=== PATIENT | female | born 1975 | race Caucasian/White ===

== ENCOUNTER 2021-07-05 09:07 | Day surgery (SDC) | payer OTHER ==
--- NOTE | 2021-07-05 08:57 | HP ---
DATE OF SURGERY: 07/05/2021 HISTORY OF PRESENT ILLNESS: The patient is a 46-year-old with off and on pain right upper quadrant epigastrium associated with some nausea, rare vomiting. One of the attacks lasted four hours. Denies any jaundice. Denies any prior abdominal surgery. Ultrasound showed cholelithiasis. PAST MEDICAL HISTORY: Gastroesophageal reflux disease. Anxiety. Depression. PAST SURGICAL HISTORY: Shoulder. Lumpectomy. MEDICATIONS: Omeprazole, Ozempic, Wegovy. ALLERGIES: SULFA. FAMILY HISTORY: Negative in regards to this problem. SOCIAL HISTORY: Denies smoking. Social alcohol use denies abuse. REVIEW OF SYSTEMS: Fourteen systems reviewed. No chest pain or palpitations. Other systems negative or noncontributory as above and per preadmission questionnaire. PHYSICAL EXAMINATION: GENERAL: No acute distress. HEENT: Sclerae nonicteric. NECK: No JVD. CHEST: Equal excursion, nonlabored breathing. CVS: Regular rate and rhythm. ABDOMEN: Soft. No peritoneal signs. EXTREMITIES: No significant edema. NEURO: Alert, oriented, moving extremities symmetrically. PSYCH: Appropriate mood and affect. IMPRESSION: Chronic cholecystitis/cholelithiasis. Risks and benefits explained in detail including but not limited to bleeding or infection, risk of trocar injury or hernia, risk of bowel, bladder or blood vessel injury, risk of bile leak, bile duct injury, retained stone or sludge possibly requiring further procedure either open or ERCP, general risk of anesthesia, deep venous thrombosis, pulmonary embolism, pneumonia, perioperative risk of aches, pains, bloating, constipation and/or loose stools possibly even chronic in nature, possibility that this procedure may not improve her symptoms and she may need further work up and/or testing, endoscopy, other studies or procedures. She understands and agrees to the planned procedure, will proceed with laparoscopic cholecystectomy with possible open.
[~2021-07-05 09:07] MED LIST: Lactated Ringers 1,000 ML IV ONE; Lactated Ringers 1,000 ML IV SCH; Sensorcaine 0.25% 10 ML ONE
[2021-07-05] MEDS ORDERED: Lactated Ringers 1,000 ML IV ONE (09:41)
[2021-07-05] MEDS ORDERED: MEFOXIN 2 GM PREMIX** 2 GM/50 ML ML IV SCH (10:00)
[2021-07-05] MEDS ORDERED: MEFOXIN 2 GM PREMIX** 2 GM/50 ML ML IV ONE (10:16)
[2021-07-05] MEDS ORDERED: Zemuron 100 MG/10 ML ONE (10:51)
[2021-07-05] MEDS ORDERED: Decadron 4 MG INJ ONE (10:51)
[2021-07-05] MEDS ORDERED: SUBLIMAZE 100 MCG/2 ML ONE ×2 (10:51→11:26)
[2021-07-05] MEDS ORDERED: Versed 2 MG/2 ML Injection ONE (10:51)
[2021-07-05] MEDS ORDERED: Xylocaine-Mpf 2% 5 Ml Vial ONE (10:51)
[2021-07-05] MEDS ORDERED: Zofran 4 MG/2 ML VIAL ONE (10:51)
[2021-07-05] MEDS ORDERED: DIPRIVAN 200 MG/20 ML IV ONE (10:51)
[2021-07-05] MEDS ORDERED: Quelicin Fliptop 200 MG/10 ML ONE (10:51)
[2021-07-05] MEDS ORDERED: OFIRMEV 100 ML IV ONE (10:52)
[2021-07-05] MEDS ORDERED: Pre-Attached Lta Kit TP ONE (10:52)
[2021-07-05] MEDS ORDERED: TRANDATE 20 MG/4 ML SYRINGE IV ONE (11:19)
[2021-07-05] MEDS ORDERED: APRESOLINE 20 MG/ML INJ ONE (11:31)
[2021-07-05] MEDS ORDERED: BRIDION 200MG/2ML IV ONE (11:51)
[2021-07-05] MEDS ORDERED: NORCO 5/325 MG ONE (12:59)
[2021-07-05] MEDS ORDERED: NORCO 5/325 MG PO PRN (13:00)
[2021-07-05] MEDS: MORPHINE SULFATE 2 MG INJ IV PRN ×2 (13:52→14:57)
[2021-07-05] MEDS ORDERED: MORPHINE SULFATE 4 MG INJ IV PRN (13:56)
[2021-07-05 14:31] VITALS: O2SAT 97
[2021-07-05] MEDS ORDERED: MORPHINE SULFATE 2 MG INJ ONE (14:52)
[2021-07-05 15:33] VITALS: BP 118/84; PULSE 78
--- NOTE | 2021-07-06 11:34 | OP ---
SURGERY DATE/TIME: 07/05/2021 1050 PREOPERATIVE DIAGNOSIS: Acute exacerbation of chronic cholecystitis, cholelithiasis. POSTOPERATIVE DIAGNOSIS: Acute exacerbation of chronic cholecystitis, cholelithiasis. PROCEDURE: Laparoscopic cholecystectomy. SURGEON: Dr. Hudson Cervantes. ANESTHESIA: General. ESTIMATED BLOOD LOSS: Minimal. INDICATIONS: As noted above. Risks and benefits explained in detail but not limited to and consent obtained. DESCRIPTION OF PROCEDURE AND FINDINGS: The patient was taken to the operating room. General anesthesia induced. Abdomen prepped and draped in the usual sterile fashion. After official time out and no disagreement with planned procedure, as it looked like she had a supraumbilical piercing in the past so a transverse incision made infraumbilical. Fascia grasped and pulled upward. Veress needle inserted and tested with saline. Pneumoperitoneum accomplished insufflating opening pressure of 0 to 15. An 11 mm bladeless port and camera inserted without difficulty followed by two - 5 mm right upper quadrant ports and 5 mm epigastric port. The gallbladder is grasped. It had some chronic inflammatory reaction. Dissecting posterior, lateral to anterior fashion slowly and carefully the cystic duct and infundibular area slowly and carefully well skeletonized until the critical view obtained both anteriorly and posteriorly. Once this was accomplished the cystic duct and cystic artery clipped x3 and divided in the usual fashion. The gallbladder slowly and carefully dissected free from its dense attachment to the liver bed clipping additional side branches off the cystic artery and cystic vein directly on the gallbladder wall as necessary. Just prior to releasing from final attachments to the anterior edge of the liver, the liver bed re-inspected. She had quite a thick wall and majority of stones were in the fundal part of the gallbladder. Just prior to releasing from the anterior edge of the liver, the liver bed re-inspected. Clips noted in place cystic duct and cystic artery stumps. No signs of any active bleeding or bile leakage. It was felt there was no benefit from drain placement. Gallbladder released from final attachments to the anterior edge of the liver and placed in provided sac, pulled up to the 10/11 port site infraumbilical area. The bag and gallbladder were pulled outside. The gallbladder opened. Multiple moderately large stones were carefully crushed and pulled free. Even with this the bag kind of disintegrated just a little bit. There was no visible stone spillage intraabdominal. A small amount of stone particles in the subcu area. This took some time to free this with the multiple stones, the gallbladder bag was freed and passed off. The fascial defect closed with puncture closure device with #1 Vicryl. Copious amount of irrigation irrigating clear. Multiple irrigations irrigating all visible stone particles out of this area but because of the inflammation it was felt that 0.25 inch Iodoform gauze be gradually advanced out over the next few days as warranted as well as continuing the patient on some perioperative antibiotics. Again, the fascial defect is closed with #1 Vicryl. The wound is irrigated out. Skin incision closed with 4-0 Vicryl. Iodoform packing placed in the 10/11 site where the very inflamed stone and sludge had been, to be gradually advanced out on postoperative day #2 with 1 cm a day until out. 0.25% Marcaine local injected along the skin incision fascial defect. The patient tolerated the procedure well. There were no immediate complications. Findings discussed with the family out in the waiting area.
== END 2021-07-05 15:40 | disposition home or self-care (01) ==
LOC: SDC 09:07
PROVIDERS: ATTEND Surgery
DX: K80.10 Calculus of gallbladder with chronic cholecystitis without obstruction (principal)
CPT/HCPCS: 36415; 81025; J0330; J0360; J0694; J1100; J2250; J2270; J2405; J2704; J3010; A9270-GY